=== PATIENT | male | born 2005 | race Caucasian/White ===

== ENCOUNTER 2025-10-11 23:33 | Emergency (ER) | payer BC, SELFPAY ==
[2025-10-11 23:45] VITALS: BP 129/86
--- NOTE | 2025-10-12 00:16 | ED.GENMED ---
History of Present Illness
General
Chief Complaint: Crisis Evaluation
Source: patient
Time Seen by Provider: 10/12/25 00:15
History of Present Illness
History of Present Illness:
Note:
CHIEF COMPLAINT(S)
The patient presented with recent suicidal ideation and a self-inflicted superficial stab attempt.
HISTORY OF PRESENT ILLNESS
The patient is a 20-year-old male who presented with suicidal ideation following what he described as constant arguments with his family, particularly his father. The patient attempted to stab himself, but the attempt was superficial and did not
result in bleeding or the need for medical intervention. This is the first time the patient has exhibited such behavior and he denies any previous suicide attempts or suicidal thoughts in the past. The patient reports the arguments are over 'stupid
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 The patient appears to have a supportive relationship with his sister, whom he was comfortable speaking to
during the visit.
SOCIAL DETERMINANTS AFFECTING HEALTH
The patient lives with his family and reports frequent conflicts, particularly with his father. He indicated having friends for support. The patient is employed at a grocery store and expressed concern about potentially missing work due to
hospitalization.
REVIEW OF SYSTEMS
- Psychiatric: Reports of suicidal ideation due to familial conflicts, no previous psychiatric history or suicide attempts, appears to have supportive social contacts outside of family.
PHYSICAL EXAM
General: Alert, no acute distress.
Skin: Warm, dry.
Head: Normocephalic, atraumatic.
Neck: Supple, trachea midline.
Eye Ears, nose, mouth and throat: Oral mucosa moist.
Cardiovascular: Normal peripheral perfusion, No edema.
Respiratory: Respirations are non-labored.
Gastrointestinal: Abdomen nondistended. Small area of redness to the skin of the mid abd., no skin break, no laceration
Back: Normal range of motion, Normal alignment.
Musculoskeletal: Normal ROM, normal strength.
Neurological: Alert and oriented to person, place, time, and situation, No focal neurological deficit observed.
Psychiatric: Cooperative, appropriate mood & affect, superficial self-inflicted injury without imminent risk behavior.
PLAN
The patient will be monitored closely for safety. Plans were made to allow the patient to communicate with his sister and employer regarding his current situation. A referral to mental health services is advised for further evaluation and support,
focusing on coping strategies for conflict at home and suicidal ideation. The patient was encouraged to communicate with friends and explore avenues for personal time away from familial stressors.
DIFFERENTIAL DIAGNOSIS
The Differential Diagnosis includes, in no particular order and is not limited to:
1. Adjustment disorder with depressed mood
2. Major depressive disorder
3. Persistent depressive disorder
4. Acute stress disorder
5. Generalized anxiety disorder
6. Intermittent explosive disorder
7. Substance-induced mood disorder
8. Borderline personality disorder
9. Post-traumatic stress disorder
10. Bipolar disorder with depressive episodes
Disposition:
SUMMARY OF ENCOUNTER
The patient, a 20-year-old male, presented to the emergency department with suicidal ideation and a recent superficial self-inflicted stab attempt due to familial conflicts, specifically with his father. During the evaluation, the patient was
well-appearing, awake, alert, and oriented with no skin break from the attempted stab, and no acute distress observed. It was determined that the patient needed further intervention, and plans were made to admit him to a psychiatric facility for
comprehensive mental health evaluation and support.
DISPOSITION
Admit to psychiatric facility.
PLAN
The plan involves close monitoring for safety and admission to a psychiatric facility for further evaluation and support of the patients mental health needs, with a focus on coping with family conflict and suicidal ideation. Coordination with mental
health services is necessary to ensure that the patient receives appropriate care.
PATIENT EDUCATION AND COUNSELING
The patient was provided information on the importance of mental health support, and the benefits of seeking help in a crisis. He was encouraged to utilize supportive relationships, such as contacting his sister, and taking personal time away from
stressors at home to aid in his recovery.
FOLLOW-UP INSTRUCTIONS
Follow-up with mental health services post-admission to the psychiatric facility is crucial to manage underlying issues and prevent further crises. Coordination with his primary care provider and consideration for ongoing therapy sessions is advised.
MEDICAL DECISION MAKING
- Number and Complexity of Problems Addressed: Chronic conditions affecting care include Adjustment disorder with depressed mood, Major depressive disorder, Persistent depressive disorder, Acute stress disorder, Generalized anxiety disorder,
Intermittent explosive disorder, Substance-induced mood disorder, Borderline personality disorder, Post-traumatic stress disorder, and Bipolar disorder with depressive episodes.
- Risk: Due to the complexity of the patients mental health presentation and associated risks, the decision to admit the patient to a psychiatric facility underscores the need for specialized intervention and monitoring.
DIAGNOSIS
Suicidal Ideation (R45.851), Adjustment Disorder with depressed mood (F43.21).
Phy Exam
Physical Exam
Physical Exam:
.
Course
Orders/Labs/Results
Orders:
Orders
10/11/25 23:42
1:1 Observation - Suicide/ Violent Behavior As Directed
Crisis Consult Urgent
Reason for Consult: +SI with attempt
10/12/25 00:29
Urine Drug Abuse Screen Urgent
Date Specimen was Collected: 10/12/25
Time Specimen was Collected: 00:27
Vital Signs
Initial and Last Documented VS:
Initial Vital Signs
Temp Pulse Resp BP Pulse Ox
98.4 F 105 16 129/86 99
10/11/25 23:45 10/11/25 23:45 10/11/25 23:45 10/11/25 23:45 10/11/25 23:45
Last Documented Vital Signs
Temp Pulse Resp BP Pulse Ox
98.4 F 105 16 129/86 99
10/11/25 23:45 10/11/25 23:45 10/11/25 23:45 10/11/25 23:45 10/12/25 00:16
*Pulse Oximetry
SaO2: 99
Oxygen Mode of Delivery: Room air
Patient hypoxic: no
*Critical Care Note
Total Time (30-74mins, 75-104mins- exclusive of procedures): Not Applicable
ED Attending Note
-
Portions of this chart may have been created with voice recognition software.� Occasional wrong word or��sound alike� substitutions may have occurred due to the inherent limitations of voice recognition software.
Discharge Plan
Departure
Patient Disposition: Psych Facility
Date of Disposition: 10/12/25
Time of Disposition: 00:16
Discharge Problem:
Suicide ideation
Interventions
Interventions:
*Risk Screen - Suicide Last Done: 10/11/25 23:35
*General Assessment Last Done: 10/12/25 00:36
*Neglect/Abuse Screening Last Done: 10/12/25 00:36
*ED COVID-19 Vaccine History Last Done: 10/12/25 00:36
*ED Influenza Vaccine History Last Done: 10/12/25 00:36
[facility] Fall Risk Assessment Tool Last Done: 10/12/25 00:35
ED-Psychological Assessment Last Done: 10/12/25 00:34
Discharge Date and Time
Print Language: YAKUT
[2025-10-12 00:28] VITALS: BMI 23.8
[2025-10-12 03:57] VITALS: BP 121/82
== END 2025-10-12 04:00 ==
LOC: EMR 23:33
PROVIDERS: EMERGENCY PHYSICIAN Emergency Medicine; FAMILY PHYSICIAN Family Medicine
DX: R45.851 Suicidal ideations (principal); F43.21 Adjustment disorder with depressed mood
CPT/HCPCS: 80306; 99283; 99285